=== PATIENT | male | born 1975 | race Caucasian/White ===

== ENCOUNTER 2017-01-17 10:14 | Emergency (ER) | payer SELFPAY ==
[2017-01-17 11:37] VITALS: BP 145/99; PULSE 66; RESP 18; O2SAT 97
--- NOTE | 2017-01-17 12:26 | EDPHY ---
H & P Stated Complaint: weight loss can't eat Time Seen by Provider: 01/17/17 11:25 HPI/ROS: CHIEF COMPLAINT: difficulty eating, weight loss HISTORY OF PRESENT ILLNESS: 41-year-old male presents emergency department complaining of a 6 month history of a acid reflux, difficulty swallowing solid foods and weight loss. Patient denies nausea or vomiting. He states he is taking Nexium intermittently with really he for a few days and then it stops working. He has not seen anybody for this. He denies abdominal pain. No fevers. No neck pain. Patient denies medical history. He denies drug or alcohol use. No chest pain or shortness of breath. REVIEW OF SYSTEMS: A comprehensive 10 point review of systems is otherwise negative aside from elements mentioned in the history of present illness. Source: Patient Exam Limitations: No limitations - Personal History Current Tetanus/Diphtheria Vaccine: Yes Current Tetanus Diphtheria and Acellular Pertussis (TDAP): Yes - Medical/Surgical History Hx Asthma: No Hx Chronic Respiratory Disease: No Hx Diabetes: No Hx Cardiac Disease: No Hx Renal Disease: No Hx Cirrhosis: No Hx Alcoholism: No Hx HIV/AIDS: No Hx Splenectomy or Spleen Trauma: No Other PMH: Kidney stones - Social History Smoking Status: Heavy smoker - Physical Exam Exam: Physical Exam Gen: Alert and Oriented, NAD HEENT: PERRL, moist mucous membranes, uvula midline, no posterior pharynx erythema or swelling, no tongue swelling NECK: no meningismus, no thyroid nodules CV: regular rate and regular rhythm PULM: CTAB, no wheezes ABDOMEN: soft, non tender to palpation, BS present BACK: No CVA tenderness NEURO: Neurologically grossly intact EXTREMITIES: normal appearing SKIN: no rash or break in skin on exposed skin PSYCH: answers questions appropriately. Constitutional: Initial Vital Signs Temperature (C) 37.1 C 01/17/17 10:16 Heart Rate 90 01/17/17 10:16 Respiratory Rate 16 01/17/17 10:16 Blood Pressure 144/99 H 01/17/17 10:16 O2 Sat (%) 96 01/17/17 10:16 O2 Delivery Mode Room Air Allergies/Adverse Reactions: No Known Allergies Allergy (Unverified 12/29/13 21:53) Home Medications: Medication Instructions Recorded NK [No Known Home Meds] 03/27/16 Medical Decision Making ED Course/Re-evaluation: I discussed this patient's case with my supervising physician Dr. Wynne. Patient will be discharged with a referral to Gastroenterology. I have recommended the patient get a endoscopy to evaluate his symptoms. Patient has no airway compromise, his symptoms have been going on for 6 months. I have recommended that he start taking Nexium again 40 mg daily and call to schedule an appointment with the turning sander tender. Patient is given strict return precautions for any new symptoms, worsening symptoms or concerns. Patient is comfortable with this plan. Differential Diagnosis: Diagnosis considered but not limited to esophageal stricture, Hay's esophagus, acid reflux, malignancy. Departure - Departure Disposition: Home, Routine, Self-Care Clinical Impression: Dysphagia Qualifiers: Dysphagia type: unspecified Qualified Code(s): R13.10 - Dysphagia, unspecified Condition: Good Instructions: Dysphagia (ED) Additional Instructions: Start taking 40 mg of Nexium daily. Follow up with the turning sander tender at first available appointment. You will need an endoscopy to evaluate your symptoms. 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
[2017-01-17 12:42] VITALS: TEMP 98.6
== END 2017-01-17 12:42 | disposition home or self-care (01) ==
DX: R13.10 Dysphagia, unspecified (principal); F17.200 Nicotine dependence, unspecified, uncomplicated

== ENCOUNTER 2017-08-07 09:35 | Emergency (ER) | payer MEDICAID ==
[2017-08-07 09:42] VITALS: TEMP 97.5
--- NOTE | 2017-08-07 09:53 | CPEKG ---
Heart Rate: 101 RR Interval: 594 P-R Interval: 172 QRSD Interval: 90 QT Interval: 336 QTC Interval: 436 P Rye: 25 QRS Rye: 30 T Wave Rye: 55 EKG Severity - ABNORMAL ECG - EKG Impression: SINUS TACHYCARDIA EKG Impression: ABNRM R PROG, CONSIDER ASMI OR LEAD PLACEMENT Electronically Signed By: Brandie Lilly 07-Aug-2017 15:08:10
--- NOTE | 2017-08-07 10:05 | EDPHY ---
H & P Time Seen by Provider: 08/07/17 09:45 HPI/ROS: CHIEF COMPLAINT: Left-sided chest pain, shortness of breath HISTORY OF PRESENT ILLNESS: 41-year-old male with esophageal cancer presents with left-sided chest pain and shortness of breath. Status post esophagectomy on 07/10/2017. 1 week after surgery he was diagnosed with bilateral lower extremity DVTs. He was placed on Xarelto on 07/18/2017. He was discharged home from [facility] on 07/25/17. Upon discharge, he was placed on oxygen 2 L by nasal cannula and has been using oxygen around the clock since then. 5 days ago he was diagnosed with a left sided pulmonary embolism. He was placed on Lovenox twice daily and has been taking Lovenox for 5 days. The Xarelto was discontinued. This morning he awoke with increased shortness of breath and increased left-sided chest pain. The chest pain is moderate and increases with movement and deep inspiration. He is taking oxycodone 10 mg every 4-6 hours as needed for pain. REVIEW OF SYSTEMS: Constitutional: No fever, no chills Eyes: No visual changes ENT: No sore throat Respiratory: No cough Gastrointestinal: No nausea, no vomiting, no abdominal pain Genitourinary: no dysuria Musculoskeletal: No leg pain or swelling Skin: No rash Neurological: No headache Psychiatric: No anxiety Past Medical/Surgical History: Esophageal cancer Social History: Oncologist: Dr. Alas at [facility] Smoking Status: Former smoker Physical Exam: General Appearance: Alert, pleasant, appears in pain Eyes: Pupils equal and round, 2 mm, conjunctival pallor or ENT, Mouth: Mucous membranes moist Neck: Normal inspection Respiratory: Normal respiratory rate, Lungs are clear to auscultation Cardiovascular: Regular tachycardia, rate 100 Gastrointestinal: Abdomen is soft and nontender Neurological: A&O, nonfocal exam Skin: Warm and dry, no rash Extremities: No inspection, no pitting pedal edema Psychiatric: Mood and affect normal Constitutional: Initial Vital Signs Temperature (C) 36.4 C 08/07/17 09:39 Heart Rate 104 H 08/07/17 09:39 Respiratory Rate 18 08/07/17 09:39 Blood Pressure 118/77 08/07/17 09:39 O2 Sat (%) 92 08/07/17 09:39 O2 Delivery Mode Nasal Cannula O2 (L/minute) 2 Allergies/Adverse Reactions: No Known Allergies Allergy (Verified 08/07/17 09:37) Home Medications: Medication Instructions Recorded Many Fiend Will Get List 08/07/17 Medical Decision Making - Diagnostics EKG Interpretation: EKG interpreted by me reveals sinus tachycardia, rate 101, abnormal R-wave progression. Imaging Results: Imaging Impressions Chest/Thorax CTA 08/07/17 10:02 Impression: 1. Segmental left upper lobe pulmonary embolus. 2. Peripherally enhancing fluid collection in the inferior right chest posterior to the gastric pull-through, of uncertain chronicity. This could represent empyema/abscess or sequela of a chronic collection. Correlation with outside imaging is recommended if available. 3. Nonspecific mediastinal adenopathy, which could be reactive or related to metastases. Correlation with previous imaging is recommended. 4. Moderate left pleural effusion. 5. Gastric pull-through with an esophageal stent, with debris throughout the length of the stent. 6. 5 mm hepatic hypodensity, too small to characterize. 7. Indeterminate splenic hypodensity, which could be perfusional. 8. Groundglass opacities in the right middle lobe, which could be related to subsegmental atelectasis or inflammation. Additional findings as above. Findings discussed with Dr. Brandie Lilly on 08/07/2017 at 11:33. ED Course/Re-evaluation: CORHIO reviewed; no records available. Pt's oncologist at [facility], moustapha Minor. Discussed with Dr. Morales, auditing control clerk for Dr. Alas. CT scan from Saturday reviewed and is similar to the CT scan today. On the prior CT scan, he had a a left upper lobe embolism, moderate left-sided pleural effusion and a right- sided hydropneumothorax. This CT scan is very similar to the CT scan today. The CT scan was discussed with the patient and his girlfriend. Discussed admission versus discharge home. The patient would greatly prefer to go home. I feel that this is a safe plan for the patient, though I am concerned about uncontrolled pain. After some discussion, the patient decided to be discharged home. He requested an additional dose of morphine prior to discharge. He will increase his oxycodone at home. Differential Diagnosis: Differential diagnosis includes though it is not limited to pneumonia, pneumothorax, pulmonary embolism, aortic dissection, pericarditis, acute coronary syndrome. - Data Points Laboratory Results: Laboratory Results 08/07/17 10:10 08/07/17 10:10 08/07/17 08/07/17 08/07/17 10:10 10:10 10:05 WBC 11.89 10^3/uL H 10^3/uL (3.80-9.50) RBC 3.26 10^6/uL L 10^6/uL (4.40-6.38) Hgb 10.9 g/dL L g/dL (13.7-17.5) POC Hgb 11.6 gm/dL L gm/dL (13.7-17.5) Hct 31.5 % L % (40.0-51.0) POC Hct 34 % L % (40-51) MCV 96.6 fL fL (81.5-99.8) MCH 33.4 pg pg (27.9-34.1) MCHC 34.6 g/dL g/dL (32.4-36.7) RDW 12.2 % % (11.5-15.2) Plt Count 347 10^3/uL 10^3/uL (150-400) MPV 8.6 fL L fL (8.7-11.7) Neut % (Auto) 88.0 % H % (39.3-74.2) Lymph % (Auto) 4.4 % L % (15.0-45.0) [place] % (Auto) 5.6 % % (4.5-13.0) Eos % (Auto) 1.2 % % (0.6-7.6) Baso % (Auto) 0.3 % % (0.3-1.7) Nucleat RBC Rel Count 0.0 % % (0.0-0.2) Absolute Neuts (auto) 10.48 10^3/uL H 10^3/uL (1.70-6.50) Absolute Lymphs (auto) 0.52 10^3/uL L 10^3/uL (1.00-3.00) Absolute Monos (auto) 0.66 10^3/uL 10^3/uL (0.30-0.80) Absolute Eos (auto) 0.14 10^3/uL 10^3/uL (0.03-0.40) Absolute Basos (auto) 0.03 10^3/uL 10^3/uL (0.02-0.10) Absolute Nucleated RBC 0.00 10^3/uL 10^3/uL (0-0.01) Immature Gran % 0.5 % % (0.0-1.1) Immature Gran # 0.06 10^3/uL 10^3/uL (0.00-0.10) POC Sodium 138 mEq/L mEq/L (135-145) Sodium 136 mEq/L mEq/L (135-145) POC Potassium 4.2 mEq/L mEq/L (3.3-5.0) Potassium 5.0 mEq/L mEq/L (3.5-5.2) POC Chloride 99 mEq/L mEq/L (97-110) Chloride 99 mEq/L mEq/L (97-110) Carbon Dioxide 24 mEq/l mEq/l (22-31) Anion Gap 13 mEq/L mEq/L (8-16) POC BUN 15 mg/dL mg/dL (7-23) BUN 16 mg/dL mg/dL (7-23) Creatinine 1.0 mg/dL mg/dL (0.7-1.3) POC Creatinine 1.0 mg/dL mg/dL (0.7-1.3) Estimated GFR > 60 Glucose 137 mg/dL H mg/dL (70-100) POC Glucose 143 mg/dL H mg/dL (70-100) Calcium 9.2 mg/dL mg/dL (8.5-10.4) NT-Pro-B Natriuret Pep 95 pg/mL pg/mL (0-125) Medications Given: Discontinued Medications Sodium Chloride (Ns) 1,000 mls @ 0 mls/hr IV ONCE ONE PRN Reason: Wide Open Stop: 08/07/17 11:32 Last Admin: 08/07/17 11:32 Dose: 1,000 mls Morphine Sulfate (Morphine) 6 mg IVP EDNOW ONE Stop: 08/07/17 09:59 Last Admin: 08/07/17 10:09 Dose: 6 mg Point of Care Test Results: 08/07/17 10:05 POC Sodium 138 POC Potassium 4.2 POC Chloride 99 POC BUN 15 POC Creatinine 1.0 POC Glucose 143 H Departure - Departure Disposition: Home, Routine, Self-Care Clinical Impression: Chest pain Qualifiers: Chest pain type: chest pain on breathing Qualified Code(s): R07.1 - Chest pain on breathing; R07.81 - Pleurodynia Pulmonary embolism Qualifiers: Pulmonary embolism type: other Chronicity: acute Condition: Good Instructions: Chest Pain (ED) Additional Instructions: The CT scan of your chest today is unchanged from the CT scan on Saturday. You have a small pulmonary embolus and the left upper lobe and a moderate left- sided pleural effusion. I spoke with Dr. Morales today. You should follow up with Dr. Alas in 1-2 days. Please return to the emergency department for worsening symptoms, uncontrolled pain or any concerns. Referrals: SHERRY ALAS [Other] - As per Instructions
[2017-08-07 10:22] LABS: PLATELET COUNT 347 10^3/uL (150-400)
[2017-08-07] MEDS ORDERED: IOPAMIDOL (ISOVUE 370) 100 ML BTL IV ONE (10:34)
[2017-08-07] MEDS ORDERED: NS 1,000 ML IV ONE (11:31)
[2017-08-07 13:20] VITALS: BP 123/87; PULSE 99; RESP 17; O2SAT 99
== END 2017-08-07 13:51 | disposition home or self-care (01) ==
DX: R07.1 Chest pain on breathing (principal); R07.81 Pleurodynia; I26.99 Other pulmonary embolism without acute cor pulmonale; Z85.01 Personal history of malignant neoplasm of esophagus; Z87.891 Personal history of nicotine dependence
CPT/HCPCS: 82947-QW; 96374; J1642; Q9967